=== PATIENT | female | born 1990 | race Two or more races ===

== ENCOUNTER 2016-11-25 12:20 | Observation (INO) | payer OTHER ==
[~2016-11-25] VITALS: Ht 167.6 cm; Wt 83.9 kg
[2016-11-25] MEDS ORDERED: TERBUTALINE SULFATE 1 MG/ML 1ML VIAL SC ONE (12:30)
[2016-11-25] MEDS: TERBUTALINE SULFATE 1 MG/ML 1ML VIAL SC SCH ×3 (12:40→13:20)
[2016-11-25] MEDS ORDERED: ONDANSETRON HCL 4 MG/2 ML VIAL ONE (12:54)
[2016-11-25 13:49] LABS: Urine Bilirubin Negative (Negative); Urine Blood 2+ /uL (Negative); Urine Color Yellow (Yellow); Urine Glucose Normal (Normal); Urine Ketone Negative (Negative); Urine Mucus FEW (None Seen); Urine Nitrite Negative (Negative); Urine RBC 334 /hpf (0 - 4); Urine Squamous Epithelial Cell FEW /hpf (<5); Urine Urobilinogen Normal (Negative); Urine pH 7.5 (5.0-8.0)
[2016-11-25] MEDS ORDERED: LACTATED RINGER'S 1,000 ML IV SCH (14:43)
[2016-11-25] MEDS ORDERED: LACTATED RINGER'S 1,000 ML IV ONE (14:43)
[2016-11-25] MEDS ORDERED: ONDANSETRON HCL 4 MG/2 ML VIAL IV ONE (14:45)
[2016-11-25] MEDS: ceFAZolin 2 GM in D5W 5% 100 ML IV ONE ×2 (15:00→15:19)
[2016-11-25] MEDS ORDERED: NIFEdipine 10 MG CAP PO SCH (16:30)
[2016-11-25] MEDS ORDERED: BETAMETHASONE ACET (6MG/ML) 5ML VIAL IM ONE (16:30)
[2016-11-25] MEDS ORDERED: PREN27TA7 PO (19:05)
[2016-11-25] MEDS ORDERED: ceFAZolin 1GM/50ML D5W 50 ML IV SCH (23:00)
== END 2016-11-25 18:58 | disposition home or self-care (01) | DRG 778 ==
LOC: LDRP 12:20
PROVIDERS: ADMIT Specialist; ATTEND Specialist
DX: O60.00 Preterm labor without delivery, unspecified trimester (principal); Z3A.00 Weeks of gestation of pregnancy not specified
CPT/HCPCS: 59025; 76775; 76815; 80307; 81001; 81002; 96361; 96365; 96372; 96375; G0378; J0690; J0702; J2405; J3105; 96366; J7060